=== PATIENT | female | born 1985 | race Caucasian/White ===

== ENCOUNTER → 2020-07-21 10:57 | Outpatient (CLI) | payer OTHER ==
[2016-01-16 10:13] VITALS: BMI 33.9
[~2020-07-21 10:57] MED LIST: ADIPEX-P37.5 MG PO; LEXAPRO10 MG PO; MICROGESTIN FE1 EACH PO; MINASTRIN FE PO; NORCO 7.5/325 T1 TA1 PO; OMEPRAZOLE20 M1 PO; VENTOLIN HFA18 GM INH; ZESTRIL10 MG PO; ZOCOR10 MG PO; ZYRTEC10 MG PO
== END | disposition home or self-care (01) ==
LOC: D.MRI 05-05 10:30
PROVIDERS: ATTEND Clinical Nurse Specialist Family Health
DX: R41.3 Other amnesia (principal)